=== PATIENT | male | born 1960 | race Two or more races ===

== ENCOUNTER 2018-11-16 13:46 | Emergency (ER) | payer MEDICARE, OTHER ==
[~2018-11-16] VITALS: Ht 182.9 cm; Wt 100.2 kg
--- NOTE | 2018-11-16 14:00 | NUR ---
BIB BY RA 58 YEAR OLD MALE SENT BY DR ANGELO FROM [facility] C/O RIGHT SHOULDER PAIN AND DISCOLORATION. ALERT AND ORIENTED X3, BREATHING EVEN AND UNLABORED WITH NO DISTRESS NOTED. SKIN WARM TO TOUCH. AWAITING TO BE SEEN BY .
--- NOTE | 2018-11-16 14:10 | NUR ---
X-RAY TECH AT BEDSIDE
[2018-11-16] MEDS ORDERED: ONDANSETRON 4 MG TAB.RAPDIS ONE (14:16)
[2018-11-16] MEDS ORDERED: MORPHINE SULFATE INJ 4 MG/ML DISP.SYRIN ONE (14:16)
[2018-11-16] MEDS ORDERED: MORPHINE SULFATE INJ 2 MG/ML DISP.SYRIN IM ONE (14:30)
[2018-11-16] MEDS ORDERED: ONDANSETRON 4 MG TAB.RAPDIS SL ONE (14:30)
--- NOTE | 2018-11-16 15:46 | NUR ---
Paged Dr. Jarvis for consult
--- NOTE | 2018-11-16 15:48 | NUR ---
PATIENT REMAINS STABLE, VS ARE STABLE. RIGHT SHOULDER PAIN 3/10, LUNCH PROVIDED AT BEDSIDE.
--- NOTE | 2018-11-16 16:00 | NUR ---
HEALTH AND WELLNESS DIRECTOR AT BEDSIDE TO TAKE PATIENT FOR CT SCAN
[2018-11-16 16:11] LABS: HEMATOCRIT 35 % (39-51); HEMOGLOBIN 11.8 g/dL (13.5-17.5); MEAN CORPUSCULAR HGB CONC 34 g/dl (31.0-36.0); MEAN CORPUSCULAR VOLUME 99 fL (80-96); RED BLOOD CELL COUNT(AUTO) 3.55 MIL/uL (4.5-6.0); WHITE BLOOD COUNT (AUTO) 9.2 K/uL (4.3-11.0)
[2018-11-16 16:12] LABS: BASOPHILS # (AUTO) 0.1 /CMM (0.0-0.2); BASOPHILS % (AUTO) 0.6 % (0.0-2.0); LYMPHOCYTES # (AUTO) 1.5 /CMM (0.8-4.8); LYMPHOCYTES % (AUTO) 15.8 % (20.0-44.0); MONOCYTES # (AUTO) 1.2 /CMM (0.1-1.30); NEUTROPHILS # (AUTO) 6.2 /CMM (1.8-8.9); NEUTROPHILS % (AUTO) 67.6 % (43.0-81.0); PLATELET COUNT (AUTO) 252 /CMM (150-450)
[2018-11-16 16:23] LABS: CALCIUM, SERUM 9.1 mg/dL (8.5-10.1); CREATININE 0.6 mg/dL (0.6-1.3); POTASSIUM 4.5 mmol/L (3.5-5.1)
--- NOTE | 2018-11-16 17:44 | NUR ---
[facility] 316-1
--- NOTE | 2018-11-16 17:50 | NUR ---
CALLED [facility] [phone] AFTER HOURS TO [phone]
--- NOTE | 2018-11-16 18:19 | NUR ---
PATIENT REMAINS STABLE, VS ARE STABLE NO DISTRESS NOTED. WILL CONTINUE TO MONITOR
--- NOTE | 2018-11-16 18:36 | NUR ---
PATIENT WILL BE GOING BACK TO FACILITY. CAREGIVER AT BEDSIDE AND CALLED FOR TRANSPORTATION
--- NOTE | 2018-11-16 19:12 | NUR ---
CAREGIVER FROM FACILITY IS HERE TO QUALITY CONTROL TECH PATIENT. Patient discharged to home in stable condition. Written and verbal after care instructions given. Patient verbalizes understanding of instruction. IV removed. Catheter intact and site benign. Pressure and 4x4 applied to site. No bleeding noted.
[2018-11-16 19:14] VITALS: BP 140/74
== END 2018-11-16 19:15 | disposition home or self-care (01) ==
LOC: ER 13:55
DX: S42.251A Displaced fracture of greater tuberosity of right humerus, initial encounter for closed fracture (principal); I10 Essential (primary) hypertension; E78.5 Hyperlipidemia, unspecified; F20.9 Schizophrenia, unspecified; E03.9 Hypothyroidism, unspecified; W50.0XXA Accidental hit or strike by another person, initial encounter; Y93.89 Activity, other specified; Y92.89 Other specified places as the place of occurrence of the external cause; Y99.8 Other external cause status
CPT/HCPCS: 36415; 73020; 73060-TC; 73090-TC; 73120-TC; 73200-TC; 80048-TC; 85025-TC; 85730-TC; J2270; Q0162